=== PATIENT | male | born 1965 | race Caucasian/White ===

== ENCOUNTER 2024-02-21 08:56 | Emergency (ER) | payer OTHER, SELFPAY ==
[2024-02-21 09:22] VITALS: BP 121/66; PULSE 77; RESP 18; TEMP 37.1; O2SAT 98
--- NOTE | 2024-02-21 09:25 | ED.URI ---
HPI - URI/Sore Throat General Stated Complaint: Fever/Cough Source: patient and RN notes reviewed Mode of arrival: ambulatory Limitations: no limitations History of Present Illness MD elicited complaint: cough and sore throat Related Data Allergies Allergy/AdvReac Type Severity Reaction Status Date / Time No Known Allergies Allergy Verified 02/14/24 09:48 Review of Systems Review of Systems: CONSTITUTIONAL: Denies malaise, chills, sweats, or fever. EYES: Denies visual changes, redness, or discharge. ENT: Reports rhinorrhea, congestion, sinus pain, otalgia and sore throat. CARDIOVASCULAR: Denies chest pain, palpitations, or edema. RESPIRATORY: Reports cough. Denies dyspnea. GASTROINTESTINAL: Denies abdominal pain, nausea, vomiting, diarrhea SKIN: Denies rash or itching. MUSCULOSKELETAL: Denies myalgia. NEUROLOGIC: Denies headache. All systems reviewed & are unremarkable except as noted in HPI and below PMFSH Comments At time of signature, agree with nursing past medical, surgical, social and family history. There is no relevant family history pertinent to the presenting complaint Exam Narrative: GENERAL: Well-appearing, well-nourished, and in no acute distress. HEAD: Normocephalic EYES: PERRLA, conjunctivae clear ENT: Nares clear, turbinates edematous and erythematous, clear discharge. Mucous membranes moist. TM pearly hightower with dull light reflex bilaterally; no tragal tenderness. Oropharynx not erythematous without lesions. Tonsils not enlarged and without exudate, no drooling, no hoarseness, no trismus, uvula midline. NECK: Supple. No lymphadenopathy CHEST: Clear to auscultation, breath sounds equal. No wheezing, rhonchi, rales, or stridor. No respiratory distress, speaks in full sentences. HEART: Regular rate and rhythm. No murmur heard. SKIN: Warm, dry, no rash. NEURO: Alert and oriented x3. PSYCH: Normal mood and affect Course Course Emergency Course: Patient is aware of diagnosis, understands and agrees to treatment plan. Anticipatory guidance given. Patient agrees to follow-up as directed and is aware of reasons to seek care at the emergency department. Portions of this record may have been created with voice recognition software Level of Care: Express Care Visit Vital Signs Vital signs: Vital Signs Temperature 98.8 F 02/21/24 09:22 Pulse Rate 77 01/09/25 09:22 Respiratory Rate 18 02/21/24 09:22 Blood Pressure 121/66 02/21/24 09:22 Pulse Oximetry 98 02/21/24 09:22 Oxygen Delivery Room Air 02/21/24 09:22 Temperature 98.8 F 02/21/24 09:22 Pulse Rate 77 02/21/24 09:22 Respiratory Rate 18 02/21/24 09:22 Blood Pressure 121/66 02/21/24 09:22 Pulse Oximetry 98 02/21/24 09:22 Oxygen Delivery Room Air 02/21/24 09:22 Reviewed. MDM - URI/Sore Throat MDM Narrative Medical decision making narrative: Differential diagnosis considered: Bynum virus, strep pharyngitis, allergic rhinitis, upper respiratory tract infection, sinusitis, rhinosinusitis, nasopharyngitis. viral pharyngitis, otitis media, otitis externa, pneumonia, bronchitis, viral cough syndrome, viral syndrome, and influenza. Exam findings show no acute concerns or changes; patient is non-toxic appearing and is in no distress. Patient is appropriate for outpatient treatment and follow-up. Lab Data Attestation: I reviewed the patient's lab results. Critical Care Time Critical Care Time Critical Care Time: No Discharge Plan Discharge Patient Language: Wallisian Follow-up/Referrals: Deo Buchanan MD [Primary Care Provider] -
--- NOTE | 2024-02-21 09:45 | ED.MALEGU ---
HPI - Male Genitourinary General Chief complaint: Urogenital-Male Stated complaint: Fever/Cough Time Seen by Provider: 02/21/24 09:46 Source: patient and RN notes reviewed Mode of arrival: ambulatory Limitations: no limitations History of Present Illness HPI Narrative: 58 year old male presents with concern for hematuria. He reports for about 3-4 days he has had dark colored cloudy urine. He denies frequency, urgency, dysuria, suprapubic pressure, Denies general malaise, nausea, vomiting, chills, aches, sweats, fever. He denies back pain, flank pain, or abdominal pain. He denies difficulty in passing urine or altered urine stream. He denies any trauma, strenuous exercise. He denies taking any blood thinners. Reports he took 1 or 2 aspirin in the last couple weeks when he was not feeling well. He denies any testicle swelling, redness, warmth, pain. MD Complaint: other (hematuria) Related Data Home Medications ?Medication ?Instructions ?Recorded ?Confirmed ?Last Taken ?Type No Home Medications 02/21/24 02/21/24 Unknown History Allergies Allergy/AdvReac Type Severity Reaction Status Date / Time No Known Allergies Allergy Verified 02/21/24 09:37 Review of Systems Review of Systems: CONSTITUTIONAL: Denies malaise, chills, sweats, or fever. CARDIOVASCULAR: Denies chest pain, palpitations, or edema. RESPIRATORY: Denies cough or dyspnea. GASTROINTESTINAL: Denies abdominal pain, nausea, vomiting, diarrhea, bloody, or mucous stools. GENITOURINARY: Denies dysuria, frequency, urgency, suprapubic pressure, testicular pain, pressure, warmth, redness. Reports hematuria. MUSCULOSKELETAL: Denies back pain or myalgia. PSYCHIATRIC: Denies anxiety or depression. All systems reviewed & are unremarkable except as noted in HPI and below PMFSH Comments At time of signature, agree with nursing past medical, surgical, social and family history. There is no relevant family history pertinent to the presenting complaint Exam Narrative: GENERAL: Well-appearing, well-nourished, and in no acute distress. HEAD: Normocephalic. EYES: PERRLA, conjunctivae clear. NECK: Supple. No lymphadenopathy CHEST: Clear to auscultation. No respiratory distress. HEART: Regular rate and rhythm. ABDOMEN: Soft, nontender upon palpation, nondistended, normal active bowel sounds, no palpable or pulsatile masses, no guarding. No CVA tenderness SKIN: Warm, dry, no rash. NEURO: Alert and oriented x3. PSYCH: Normal mood and affect Course Course Emergency Course: Patient is aware of, understands and agrees to treatment plan. Anticipatory guidance given. Patient agrees to follow-up as directed and is aware of reasons to seek care at the emergency department. Portions of this record may have been created with voice recognition software Level of Care: Express Care Visit Vital Signs Vital signs: Vital Signs Temperature 98.8 F 02/21/24 09:22 Pulse Rate 77 02/21/24 09:22 Respiratory Rate 18 02/21/24 09:22 Blood Pressure 121/66 02/21/24 09:22 Pulse Oximetry 98 02/21/24 09:22 Oxygen Delivery Room Air 02/21/24 09:22 Temperature 98.8 F 02/21/24 09:22 Pulse Rate 77 02/21/24 09:22 Respiratory Rate 18 02/21/24 09:22 Blood Pressure 121/66 02/21/24 09:22 Pulse Oximetry 98 02/21/24 09:22 Oxygen Delivery Room Air 02/21/24 09:22 Reviewed. MDM - Male Genitourinary MDM Narrative Medical decision making narrative: UA unreliable due to gross hematuria, no other concerning symptoms, patient was given instructions of when to go to the emergency room and was given follow-up with urology Exam findings and UA show no acute concerns or changes; patient is non-toxic appearing and is in no distress. No CMT, adnexal tenderness, or evidence of pelvic etiology. Patient is appropriate for outpatient treatment and follow-up. Lab Data Attestation: I reviewed the patient's lab results. Critical Care Time Critical Care Time Critical Care Time: No Discharge Plan Discharge Clinical Impression: Hematuria Patient Disposition: Home, Self-Care Condition: Stable Instructions: Hematuria (ED) Additional Instructions: 1) Please follow-up with Urology in the next 1-2 days. 2) If you have any worsening of symptoms or any other urgent concerns please go to the ER. 3) Please read and follow information included in discharge instructions. Patient Language: Citizen Of [place] Prescriptions: No Action No Home Medications Follow-up/Referrals: Rocco Samano MD [Physician] - 2 Days (Hematuria) Deo Buchanan MD [Primary Care Provider] - Time of Disposition: 10:05
== END 2024-02-21 10:15 | disposition home or self-care (01) ==
PROVIDERS: Emergency Provider Nurse Practitioner; PCP Family Medicine
DX: R31.9 Hematuria, unspecified (principal)
CPT/HCPCS: 99212; G0463